=== PATIENT | male | born 2005 | race Caucasian/White ===

== ENCOUNTER 2024-03-27 15:48 | Emergency (ER) | payer OTHER, SELFPAY ==
[2024-03-27 16:01] VITALS: BP 129/73; PULSE 67; O2SAT 96
[2024-03-27 16:35] VITALS: BP 124/74; PULSE 67; RESP 20; TEMP 36.8; O2SAT 99; BMI 26.1
--- NOTE | 2024-03-27 16:36 | ED_ITS ---
HPI - General Adult General Chief complaint: General Medical Stated complaint: anxious, feels stiff after taking ingrezza Time Seen by Provider: 03/27/24 16:40 Source: patient Mode of arrival: ambulatory Limitations: no limitations History of Present Illness ED Provider: brisa [facility] narrative: Patient is a 18-year-old male presenting to the emergency department with complaint of feeling anxious and jittery for the past week after having dose of Ingrezza increased by his prescriber. He describes his symptoms as feeling my whole body feels fuzzy, but denies numbness/tingling. States that he takes this medication for involuntary neck movements. The past two days he has taken it during the day instead of at night. He states that he is also on lithium, risperdal, palperidone, and prazosin and takes these medications as prescribed. Denies fevers. Denies neck pain. Denies abdominal pain, nausea, vomiting, diarrhea. Denies urinary symptoms. Denies any suicidal or homicidal ideation. MD complaint: abnormal sensations Onset (ago): week(s) Treatments prior to arrival: none Related Data Allergies Allergy/AdvReac Type Severity Reaction Status Date / Time amoxicillin Allergy Hives Verified 03/27/24 16:37 clavulanic acid Allergy Hives Verified 03/27/24 16:37 [From Augmentin] Review of Systems 2 Review of Systems: As per HPI. Yes all other systems are reviewed and are negative Constitutional: Constitutional: Reports as per HPI [facility] Social History Social History Advance Directives: No Advance Directives Information Provided: No Physical Exam ED Vital Signs: Vital Signs - 24 hr 03/27/24 16:35 Temperature 98.2 F Pulse Rate 67 Respiratory Rate 20 Blood Pressure 124/74 Pulse Oximetry 99 Oxygen Delivery Method Room Air BMI result Body Mass Index 26.1 Vital signs have been reviewed and appear to be correct. Blood pressure normal. Heart rate normal. Respiratory rate normal. Temperature normal. Oxygen saturation normal. Const General: cooperative, healthy appearing and no acute distress Orientation/consciousness: oriented to person, oriented to place, oriented to time and patient oriented x3 Limitations: no limitations HENMT Head: Yes normocephalic and Yes atraumatic Ears: external ears normal General nose exam: Normal external nose present Face and sinus: Yes face symmetric Mouth: oropharynx normal and moist mucous membranes Throat: Yes uvula midline Eyes Pupils: Equal, round and reactive pupils present Neck Neck: Yes normal visual inspection, Yes full ROM, Yes no lymphadenopathy, Yes no meningeal signs, Yes supple and No anterior neck swelling Resp Effort & Inspection: normal respiratory effort and able to speak in complete sentences Auscultation: clear to auscultation bilaterally Cardio Rate: regular rate Rhythm: regular rhythm Heart sounds: S1 normal heart sound present and S2 normal heart sound present GI Palpation (GI): Soft to palpation and nontender Auscultation: normoactive bowel sounds General: Yes no CVA tenderness Back/Spine/Pelvis Back: no CVA tenderness Skin General skin exam: elasticity normal and turgor normal Neuro Other: mild stiffness noted to all 4 extremities General: oriented to person, oriented to place, oriented to time, patient oriented x3, gait normal, tone normal, moves all extremities, Normal light touch and pain sensation, no meningeal signs, no focal motor deficits, CN's II-XI intact bilaterally and deep tendon reflexes 2+ bilaterally Cranial nerves: Yes Equal, round and reactive pupils present Cognition (Neuro): normal cognition Motor exam (neuro): 5/5 motor strength present throughout, no tremor noted and Normal motor muscle tone present throughout Extrem General: Yes full ROM, Yes no pedal edema and Yes no calf tenderness Psych Mental Status: mental status grossly normal Affect: normal affect Thought process: Normal thought process present Course Reevaluation(s) Reevaluation #1: Patient was given to me via sign-out, he tested negative for COVID. Discussed workup with patient and mother at bedside. They will follow-up with the prescriber in regards to the medication. He is feeling well and is eager for discharge. Patient stable for discharge. Medical Decision Making Medical Decision Making MDM Narrative: Patient is a 18-year-old male presenting to the emergency department with complaint of feeling anxious and jittery for the past week after having dose of Ingrezza increased by his prescriber. On exam patient is awake, A+Ox3, VS WNL, afebrile, normal neurological exam without focal deficits, physical exam findings as above. Given reported symptoms and physical exam findings, initial differential includes adverse effect of medication, QT prolongation, electrolyte abnormality, viral illness. No nucchal rigidity, do not suspect meningitis. Labs notable for subtherapeutic lithium level, leukocytosis, no significant electrolyte abnormalities. Patient states he does drink large amounts of water. Discussed with patient that this can affect his lithium levels. Discussed with patient that his symptoms are likely due to his recent medication adjustment, and that he should follow up with his prescriber to discussed his symptoms. Do not feel medication changes are indicated at today's visit. Patient signed out to [facility] pending viral serology. Feel patient will be stable for discharge home. Return precautions discussed with patient at bedside. Patient verbalized understanding of and agreement with plan. Differential Diagnosis Differential Diagnoses: The differential diagnosis associated with the presentation includes As per [facility]. Lab Data [facility] Lab Attestation statement: I reviewed the patient's lab results. As per MDM. 03/27/24 16:50 03/27/24 16:50 Labs: Lab Results 03/27/24 03/27/24 Range/Units 16:50 18:10 WBC 14.3 H (4.8-10.8) X10*3/uL RBC 5.81 H (4.60-5.80) X10*6/uL Hgb 16.8 (14.0-18.0) g/dl Hct 48.9 (42.0-52.0) % MCV 84.2 (80.0-98.0) fL MCH 28.9 (27.0-33.0) pg MCHC 34.4 (31.0-36.0) g/dl RDW 12.5 (11.0-16.0) % Plt Count 277 (160-400) X10*3/uL MPV 9.6 (9.4-12.4) fL Immature Gran % (Auto) 0.6 H (0.0-0.4) % Neut % (Auto) 78.6 H (45-73) % Lymph % (Auto) 14.2 L (20-40) % [place] % (Auto) 4.8 (2-11) % Eos % (Auto) 1.3 (0-4) % Baso % (Auto) 0.5 (0-2) % Lymph # (Auto) 2.0 (1.2-4.9) X10*3/uL [place] # (Auto) 0.7 (0.1-1.2) X10*3/uL Eos # (Auto) 0.2 (0.0-0.4) X10*3/uL Baso # (Auto) 0.1 (0.0-0.2) X10*3/uL Abs Immat Gran (auto) 0.08 H (0.00-0.03) X10*3/uL Absolute Neuts (auto) 11.2 H (2.0-8.3) x10*3/uL Absolute Nucleated RBC 0.000 (0.0-0.012) X10*3/uL Nucleated RBC % (auto) 0.0 (0.0-0.2) /100WBC Sodium 141 (135-145) mmol/L Potassium 4.1 (3.3-5.1) mmol/L Chloride 106 (96-108) mmol/L Carbon Dioxide 25 (22-29) mmol/L Anion Gap 14 (12-20) BUN 14 (9-16) mg/dL Creatinine 0.99 (0.5-1.4) mg/dL Estim Creat Clear Calc 116.1 Estimated GFR > 60 Random Glucose 96 (60-115) mg/dL Calcium 10.2 (8.4-10.2) mg/dL Total Bilirubin 0.4 (0.0-1.0) mg/dL AST 22 (5-37) U/L ALT 30 (0-40) U/L Alkaline Phosphatase 97 (39-117) U/L Total Protein 8.1 H (6.5-8.0) g/dL Albumin 4.9 (3.5-5.0) g/dL [place] 0.42 L (0.60-1.20) mmol/L Influenza Type A (PCR) NEGATIVE (Negative) Influenza Type B (PCR) NEGATIVE (Negative) RSV RNA Qual (PCR) NEGATIVE (Negative) SARS-CoV-2 RNA (RT-PCR) NEGATIVE (Negative) External Record Review External record reviewed: Inpatient record, Office record and Outpatient record Discharge Plan Discharge Clinical Impression: Adverse drug reaction Patient Disposition: Still a Patient Instructions: Valbenazine (By mouth) Additional Instructions: You were evaluated in the emergency department today and your evaluation did not reveal conditions requiring emergent medical treatment. It is likely that your symptoms are caused by your recent medication changes. We recommend that you follow-up with your prescriber to discuss your symptoms and possible adjustments to her medications. No medications were adjusted in the emergency department today. Your lithium level was noted to be subtherapeutic today, you should also notify your prescriber of this. Return with new or worsening symptoms. Discharge Date/Time: 03/27/24 19:57 Print Language: [place]
--- NOTE | 2024-03-27 16:45 | ECG_ITS ---
Test Reason : MED REACTION Blood Pressure : / mmHG Vent. Rate : 051 BPM Atrial Rate : 051 BPM P-R Int : 140 ms QRS Dur : 102 ms QT Int : 420 ms P-R-T Axes : 002 041 043 degrees QTc Int : 387 ms Sinus bradycardia Otherwise normal ECG No previous ECGs available Referred By: Claire Forrest Electronically Signed By:JESSICA JASMINE
--- NOTE | 2024-03-27 16:45 | PC.NURSE ---
Patient reports is on lithium, risperidol, invega, and ingreza. States had involuntary tick in neck and was dose of ingreza was increased to 80mg (up from 40mg) x 1 week ago. states yesterday started feeling anxious, stiff, and having numbness and tingling in arms and legs , provider aware
[2024-03-27 16:54] LABS: MANUAL DIFF FLAG NO
[2024-03-27 16:55] LABS: Basophils Absolute Auto 0.1 X10*3/uL (0.0-0.2); Basophils Percent Auto 0.5 % (0-2); Eosinophils Absolute Auto 0.2 X10*3/uL (0.0-0.4); Eosinophils Percent Auto 1.3 % (0-4); Hematocrit 48.9 % (42.0-52.0); Hemoglobin 16.8 g/dl (14.0-18.0); Imm Gran Abs Auto 0.08 X10*3/uL (0.00-0.03); Imm Gran Pct Auto 0.6 % (0.0-0.4); Lymphocytes Percent Auto 14.2 % (20-40); Mean Corpuscular HGB Conc 34.4 g/dl (31.0-36.0); Mean Corpuscular Hemoglobin 28.9 pg (27.0-33.0); Mean Corpuscular Volume 84.2 fL (80.0-98.0); Mean Platelet Volume 9.6 fL (9.4-12.4); Monocytes Absolute Auto 0.7 X10*3/uL (0.1-1.2); Monocytes Percent Auto 4.8 % (2-11); Neutrophils Absolute Auto 11.2 x10*3/uL (2.0-8.3); Neutrophils Percent Auto 78.6 % (45-73); Platelet Count 277 X10*3/uL (160-400); Red Blood Count 5.81 X10*6/uL (4.60-5.80); Red Cell Distribution Width 12.5 % (11.0-16.0); White Blood Count 14.3 X10*3/uL (4.8-10.8)
[2024-03-27 17:04] LABS: Lithium 0.42 mmol/L (0.60-1.20)
[2024-03-27 17:10] LABS: Alanine Aminotransferase 30 U/L (0-40); Albumin Level 4.9 g/dL (3.5-5.0); Alkaline Phosphatase 97 U/L (39-117); Anion Gap 14 (12-20); Aspartate Amino Transferase 22 U/L (5-37); Bilirubin Total 0.4 mg/dL (0.0-1.0); Blood Urea Nitrogen 14 mg/dL (9-16); Calcium 10.2 mg/dL (8.4-10.2); Carbon Dioxide 25 mmol/L (22-29); Chloride 106 mmol/L (96-108); Creatinine Clr Calc Pharmacy 116.1; Estimated Glomerular Filt Rate > 60; Glucose Random 96 mg/dL (60-115); Potassium 4.1 mmol/L (3.3-5.1); Sodium 141 mmol/L (135-145); Total Protein 8.1 g/dL (6.5-8.0)
[2024-03-27 18:53] LABS: Influenza A PCR NEGATIVE (Negative); Influenza B PCR NEGATIVE (Negative); Resp Syncy Virus RNA Qual PCR NEGATIVE (Negative); SARS COV2 PCR INHOUSE NEGATIVE (Negative)
[2024-03-29 23:18] LABS: A. Phagocytphilium DNA,RT-PCR NOT DETECTED (NOT DETECTED); Babesia Microti DNA, RT-PCR NOT DETECTED (NOT DETECTED); Borrelia Miyamotoi,DNA RT-PCR NOT DETECTED (NOT DETECTED); E.Chaffeensis DNA RT-PCR NOT DETECTED (NOT DETECTED); Lyme(Borrelia ssp)DNA RT-PCR NOT DETECTED (NOT DETECTED)
== END 2024-03-27 19:57 | disposition still patient (30) ==
PROVIDERS: Registered Nurse Emergency; Emergency Provider Emergency Medicine
DX: F41.9 Anxiety disorder, unspecified (principal); T50.995A Adverse effect of other drugs, medicaments and biological substances, initial encounter; Y92.9 Unspecified place or not applicable; Z03.818 Encounter for observation for suspected exposure to other biological agents ruled out
CPT/HCPCS: 0241U; 36415; 80053; 80178; 85025; 87468; 87469; 87478; 87484; 87798; 93005; 99283